=== PATIENT | male | born 1950 | race Caucasian/White ===

== ENCOUNTER 2020-01-08 06:06 | Inpatient (IN) ==
--- NOTE | 2019-12-13 07:33 | PAT Medication Instructions ---
Medication Instructions Date of Service December 13, 2019 Home Medications acetaminophen [Acetaminophen Extra Strength] 1,000 mg PO Q8H PRN atorvastatin 80 mg PO HS clopidogrel [Plavix] 75 mg PO QAM folic acid 1 mg PO TID hydrocodone-acetaminophen 1 - 2 tab PO QID PRN insulin glargine [Lantus Solostar U-100 Insulin] 60 unit SUBCUT HS insulin glargine [Lantus Solostar U-100 Insulin] 60 unit SUBCUT QAM insulin lispro [Humalog KwikPen Insulin] 15 - 20 unit SUBCUT WM lisinopril-hydrochlorothiazide 1 tab PO QAM methotrexate sodium 2.5 mg PO UD metoprolol succinate 25 mg PO QPM naproxen sodium [Aleve] 220 mg PO BID PRN pantoprazole 40 mg PO HS ropinirole 1 mg PO HS saw palmetto 500 mg PO DAILY ASK your surgeon for instructions naproxen sodium [Aleve] 220 mg PO BID PRN ASK your prescriber and surgeon clopidogrel [Plavix] 75 mg PO QAM methotrexate sodium 2.5 mg PO UD STOP taking 2 weeks before surgery (or as soon as possible if surgery is within 2 weeks) saw palmetto 500 mg PO DAILY STOP taking 24 hours before surgery ropinirole 1 mg PO HS DO NOT take the morning of surgery folic acid 1 mg PO TID insulin lispro [Humalog KwikPen Insulin] 15 - 20 unit SUBCUT WM lisinopril-hydrochlorothiazide 1 tab PO QAM Take morning of surgery With a small sip of water, OTHERWISE NOTHING TO EAT OR DRINK AFTER MIDNIGHT: acetaminophen [Acetaminophen Extra Strength] 1,000 mg PO Q8H PRN (okay to take up to 4 hours prior to surgery if needed) hydrocodone-acetaminophen 1 - 2 tab PO QID PRN (okay to take up to 4 hours prior to surgery if needed) Take evening before surgery acetaminophen [Acetaminophen Extra Strength] 1,000 mg PO Q8H PRN (if needed) atorvastatin 80 mg PO HS folic acid 1 mg PO TID hydrocodone-acetaminophen 1 - 2 tab PO QID PRN (if needed) insulin glargine [Lantus Solostar U-100 Insulin] 60 unit SUBCUT HS insulin lispro [Humalog KwikPen Insulin] 15 - 20 unit SUBCUT WM metoprolol succinate 25 mg PO QPM pantoprazole 40 mg PO HS Insulin Dependent Diabetic Patients * Test your blood sugar the morning of surgery * If Blood Sugar is GREATER THAN 150, take HALF of your regular dose of: insulin glargine [Lantus Solostar U-100 Insulin] take 30 units * If Blood Sugar is LESS THAN 150, DO NOT TAKE ANY: insulin glargine [Lantus Solostar U-100 Insulin] Other Notes If you have any questions please call us at [phone] or [phone] or [phone] or [phone]
--- NOTE | 2019-12-27 09:01 | PAT Medication Instructions ---
Medication Instructions Date of Service December 27, 2019 Home Medications acetaminophen [Acetaminophen Extra Strength] 1,000 mg PO Q8H PRN atorvastatin 80 mg PO HS clopidogrel [Plavix] 75 mg PO QAM folic acid 1 mg PO TID hydrocodone-acetaminophen 1 - 2 tab PO QID PRN insulin glargine [Lantus Solostar U-100 Insulin] 60 unit SUBCUT HS insulin glargine [Lantus Solostar U-100 Insulin] 60 unit SUBCUT QAM insulin lispro [Humalog KwikPen Insulin] 15 - 20 unit SUBCUT WM lisinopril-hydrochlorothiazide 1 tab PO QAM methotrexate sodium 2.5 mg PO UD metoprolol succinate 25 mg PO QPM naproxen sodium [Aleve] 220 mg PO BID PRN pantoprazole 40 mg PO HS ropinirole 1 mg PO HS saw palmetto 500 mg PO DAILY ASK your surgeon for instructions naproxen sodium [Aleve] 220 mg PO BID PRN ASK your prescriber and surgeon methotrexate sodium 2.5 mg PO UD clopidogrel [Plavix] 75 mg PO QAM STOP taking 2 weeks before surgery saw palmetto 500 mg PO DAILY STOP taking 24 hours before surgery ropinirole 1 mg PO HS DO NOT take the morning of surgery lisinopril-hydrochlorothiazide 1 tab PO QAM insulin lispro [Humalog KwikPen Insulin] 15 - 20 unit SUBCUT WM folic acid 1 mg PO TID Take morning of surgery With a small sip of water, OTHERWISE NOTHING TO EAT OR DRINK AFTER MIDNIGHT: hydrocodone-acetaminophen 1 - 2 tab PO QID PRN (okay to take up to 4 hours prior to surgery if needed) acetaminophen [Acetaminophen Extra Strength] 1,000 mg PO Q8H PRN (okay to take up to 4 hours prior to surgery if needed) Take evening before surgery pantoprazole 40 mg PO HS metoprolol succinate 25 mg PO QPM insulin glargine [Lantus Solostar U-100 Insulin] 60 unit SUBCUT HS insulin lispro [Humalog KwikPen Insulin] 15 - 20 unit SUBCUT WM hydrocodone-acetaminophen 1 - 2 tab PO QID PRN (if needed) folic acid 1 mg PO TID acetaminophen [Acetaminophen Extra Strength] 1,000 mg PO Q8H PRN (if needed) atorvastatin 80 mg PO HS Insulin Dependent Diabetic Patients * Test your blood sugar the morning of surgery * If Blood Sugar is GREATER THAN 150, take HALF of your regular dose of: insulin glargine [Lantus Solostar U-100 Insulin] (30 units) * If Blood Sugar is LESS THAN 150, DO NOT TAKE ANY: insulin glargine [Lantus Solostar U-100 Insulin] Other Notes If you have any questions please call us at [phone] or [phone] or [phone] or [phone]
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
--- NOTE | 2019-12-27 10:19 | XRay Report ---
XR chest Pre-admission PA/Lat HISTORY: Preop. COMPARISON: None. FINDINGS: Poststernotomy changes. The lungs are clear. The heart is mildly enlarged. No pleural effus ions. No pneumothorax. IMPRESSION: Mild cardiomegaly. No acute process. ACT 112: Negative or not required by law. Electronically signed by: Nader Perez M.D. 12/27/2019 10:18 AM
--- NOTE | 2019-12-27 10:28 | XRay Report ---
CERVICAL SPINE 3 VIEWS HISTORY: preop- RA (lateral view w flex, ext, neutral pos) COMPARISON: None. FINDINGS: The cervical spine is visualized from C1 through C7. There is no fracture. No subluxation. Mild disc space narrowing at this C4-C5 and C5-C6. Moderate disc space narrowing at C6-7. Prevertebr al soft tissues and the atlantodens interval are intact. Alignment remains intact throughout flexion and extension. IMPRESSION: No fracture or subluxation within the cervical spine. Alignment is intact throughout flexion and exte nsion. ACT 112: Negative or not required by law. Electronically signed by: Nader Perez M.D. 12/27/2019 10:27 AM
[2019-12-27 10:55] LABS: Basophils # (auto) 0.03 K/uL (0-0.2); Basophils % (auto) 0.4 %; Eosinophils # (auto) 0.14 K/uL (0-0.5); Eosinophils % (auto) 1.9 %; Hematocrit (blood only) 44.3 % (42-52); Hemoglobin 15.3 g/dL (14.0-18.0); Immature Granulocytes # (auto) 0.02 K/uL (0.00-0.02); Immature Granulocytes % (auto) 0.3 %; Lymphocytes # (auto) 2.21 K/uL (1.2-3.4); Lymphocytes % (auto) 30.4 %; Mean Corpuscular Hemoglobin 33.9 pg (25-34); Mean Corpuscular Hgb Conc 34.5 g/dL (32-36); Mean Corpuscular Volume 98.2 fL (80-100); Mean Platelet Volume 11.4 fL (7.4-10.4); Monocytes # (auto) 0.53 K/uL (0.11-0.59); Monocytes % (auto) 7.3 %; Neutrophils # (auto) 4.34 K/uL (1.4-6.5); Neutrophils % (auto) 59.7 %; Platelet Count 218 K/uL (130-400); RDW Coefficient of Variation 13.2 % (11.5-14.5); RDW Standard Deviation 47.1 fL (36.4-46.3); Red Blood Count 4.51 M/uL (4.7-6.1); White Blood Count 7.27 K/uL (4.8-10.8)
[2019-12-27 11:01] LABS: BUN Creatinine Ratio 26.5 (10-20); Creatinine Clr Calc Pharmacy 90.9 ml/min; Est GFR (African American) 106.6
[2019-12-27 11:03] LABS: Estimated Average Glucose 154 mg/dl
[2019-12-27 11:07] LABS: INR 1.1 (0.9-1.1); Partial Thromboplastin Time 28.4 Seconds (21.0-31.0); Prothrombin Time 11.1 Seconds (9.0-12.0)
[2019-12-27 11:10] LABS: Appearance Urine Clear (Clear); Bacteria Urine Automated Negative (Negative); Bilirubin Urine Negative (Negative); Blood Urine Negative (Negative); Cast Urine Automated 0 /lpf (0-5); Color Urine Yellow; Epithelial Cell Urine Auto 0-5 /lpf (0-5); Glucose Urine UA Trace (Negative); Ketones Urine Negative (Negative); Leukocyte Esterase Urine Negative (Negative); Nitrite Urine Negative (Negative); Protein Urine 1+ (Negative); RBC Urine Automated 0-4 /hpf (0-4); Specific Gravity Urine 1.023 (1.000-1.030); Urobilinogen Urine Negative (Negative); WBC Urine Automated 0 /hpf (0-5)
--- NOTE | 2019-12-27 17:35 | Electrocardiogram Report ---
Test Reason : Blood Pressure : / mmHG Vent. Rate : 077 BPM Atrial Rate : 077 BPM P-R Int : 158 ms QRS Dur : 124 ms QT Int : 420 ms P-R-T Axes : 077 255 077 degrees QTc Int : 475 ms Normal sinus rhythm Right bundle branch block Abnormal ECG No previous ECGs available Confirmed by Anatoly Solis ([id number]) on 12/27/2019 5:35:16 PM Referred By: Tito Vu Confirmed By:Anatoly Solis
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
[~2020-01-08 06:06] MED LIST: ACETAMINOPHEN 500 MG TAB PO SCH; CEFAZOLIN 2000MG 2,000 MG/15 ML SYR IV SCH; CeleBREX 200 MG CAP PO SCH; GABAPENTIN 300 MG CAP PO SCH; LR 15ML/HR IV SCH; SODIUM CHLORIDE 0.9% 250 ML IV PRN
[2020-01-08] MEDS ORDERED: fentaNYL citrate 100 MCG/2 ML VIAL ONE ×3 (06:43→11:19)
[2020-01-08] MEDS ORDERED: LIDOCAINE HCL 2% 2 ML VIAL/AMP(20MG/ML) INFIL ONE (06:43)
[2020-01-08] MEDS ORDERED: DEXAMETHASONE SOD INJ 4 MG/ML VIAL ONE (06:43)
[2020-01-08] MEDS ORDERED: ROCURONIUM BROMIDE 10 MG/ML 5 ML VIAL ONE (06:43)
[2020-01-08] MEDS ORDERED: MIDAZOLAM HCL 1 MG/ML 2ML VIAL ONE (06:43)
[2020-01-08] MEDS ORDERED: PROPOFOL IV EMULSION 10 MG/ML 20 ML VIAL IV ONE (06:43)
[2020-01-08] MEDS ORDERED: ONDANSETRON INJ 2 MG/ML 2 ML VIAL ONE (06:43)
[2020-01-08] MEDS ORDERED: BACITRACIN INJ 50,000 UNIT VIAL ONE (07:01)
[2020-01-08] MEDS ORDERED: BUPIVACAINE/EPINEPHRINE 0.5% MPF 1:200,000 10 ML VIAL ONE ×2 (07:02)
[2020-01-08] MEDS ORDERED: ATROPINE SULFATE 0.1 MG/ML 10ML SYR IV PRN (07:14)
[2020-01-08] MEDS ORDERED: HYDROmorphone INJ 1 MG/ML SYRINGE IV PRN (07:14)
[2020-01-08] MEDS ORDERED: fentaNYL citrate 100 MCG/2 ML VIAL IV PRN (07:14)
[2020-01-08] MEDS ORDERED: ePHEDrine sulfate 50 MG/ML AMP IV PRN (07:14)
[2020-01-08] MEDS ORDERED: ONDANSETRON INJ 2 MG/ML 2 ML VIAL IV PRN ×2 (07:14→11:52)
--- NOTE | 2020-01-08 07:32 | History & Physical Bridge Note ---
Date of Service January 08, 2020 History & Physical Bridge Note I have examined the patient, reviewed the History & Physical and in the interval since the performance of the History & Physical I have noted the following changes of clinical significance: no changes noted
[2020-01-08] MEDS ORDERED: NEOSTIGMINE METHYLSULFATE 5 MG/5 ML SYR ONE (10:11)
[2020-01-08] MEDS ORDERED: GLYCOPYRROLATE 0.2 MG/ML VIAL ONE (10:11)
[2020-01-08] MEDS ORDERED: FLOSEAL HEMOSTATIC MATRIX 10ML TOP ONE ×3 (10:14→10:15)
--- NOTE | 2020-01-08 10:18 | Operative Report ---
Post Operative Report Pre & Post Diagnosis Operation Date: 01/08/20 07:45 Pre-Op Diagnosis: Lumbar spinal stenosis with neurogenic claudication Post-Op Diagnosis: Same I identified the patient and participated in the time-out.: Yes Procedure Operation Date: 01/08/20 07:45 Actual Procedures #1 lumbar decompression with bilateral medial facetectomies and foraminotomies L2-3, L3-4 and L4-5. #2 posterior spinal fusion L3-4 and L4-5 per #3 placement posterior instrumentation L3-4 and L4-5. #4 placement of locally harvested morselized autograft in the posterior lateral gutters. #5 placement infuse collagen sponge, master graft in the posterior lateral gutters. Surgeon Tito Vu, DO Petrophysical Engineer Rosaura Michael Estimated Blood Loss 250 Findings See Below Patient is 5 foot 5 inches tall weighing over 89 kg with a BMI in excess of 32. The patient's body habitus did add significant technical difficulty requiring our deepest retractors and longus instruments in order to perform his procedure. This added at least 40% increase to the operative time. Specimens None Indications This is a 69-year-old male with advancing severe spinal stenosis with spondylolisthesis and noting progressive pain and strength deficits subsequently is undergoing urgent decompression fusion. Description of Procedure Patient was met with identified informed consent obtained. Patient was then taken to the operative suite underwent an patient placed in a prone position the Austen table on top of the Ian frame. All bony prominences well-padded eyes inspected to ensure no external pressure placed upon the. This point the lumbar spine was prepped and draped in a normal sterile fashion. Sharp dissection with the assistance of Bovie cautery was performed down to and exposing the lamina and transverse processes of L3-L4 and L5. From caudal cephalad fashion complete laminectomy of L4 L3 and partial laminectomy of L2 was performed including bilateral medial facetectomies and foraminotomies addressing severe spinal stenosis. Pedicle screws were then placed in L3-L4 and L5 bilaterally with assistance of fluoroscopy the process ashlee locked in position. The transverse processes of L3 and L4 and L5 were then burred to subcortical bleeding bone. Infuse collagen sponge master graft local autograft was then placed in the posterior lateral gutters. 15 round GABINO drain inserted. The incision was then closed with 1 Vicryl the fascia 2-0 Vicryl subcutaneously and 4 Monocryl for final skin closure. Steri-Strip sterile dressings placed. Patient will continue PACU stable addition. Please note Rosaura Michael present at the entire procedure involved the patient positioning complex portions of the surgery and final skin closure. Lastly spinal cord monitoring was utilized that the procedure no changes noted. I attest to the content of the Intraoperative Record and any orders documented therein. Any exceptions are noted below.
[2020-01-08] MEDS ORDERED: PHENYLEPHRINE HCL 10 MG/ML VIAL ONE (10:23)
[2020-01-08] MEDS ORDERED: ePHEDrine sulfate 50 MG/ML SYR ONE (10:23)
--- NOTE | 2020-01-08 10:35 | Fluoroscopy Report ---
LUMBAR SPINE, INTRAOPERATIVE FLUOROSCOPY HISTORY: L3-L5 decompression and fusion. FLUOROSCOPY TIME: 19 seconds. FINDINGS: Intraoperative fluoroscopy was provided for the lumbar spine. 2 fluoroscopic spot images we re obtained. Posterior decompression fusion from L3 through L5 with pedicle screws and rods. The hard kaye appears intact. IMPRESSION: Fluoroscopy provided for a L3-L5 posterior decompression and fusion. ACT 112: Negative or not required by law. Electronically signed by: Nader Perez M.D. 01/08/2020 10:33 AM
[2020-01-08] MEDS ORDERED: ALBUT/IPRATROP 3MG/0.5MG NEB 3 ML VIAL INH PRN (10:52)
[2020-01-08] MEDS ORDERED: LABETALOL HCL IV 5 MG/ML 20ML IV PRN (10:52)
[2020-01-08] MEDS ORDERED: DO NOT ADMINISTER PNEUMOCOCCAL VACCINE PRN (11:52)
[2020-01-08] MEDS ORDERED: LORazepam 0.5 MG TAB PO PRN (11:52)
[2020-01-08] MEDS ORDERED: FAMOTIDINE 20 MG TAB PO PRN (11:52)
[2020-01-08] MEDS ORDERED: METOCLOPRAMIDE HCL INJ 5 MG/ML 2 ML VIAL IV PRN (11:52)
[2020-01-08] MEDS ORDERED: ONDANSETRON 4 MG OD TAB PO PRN (11:52)
[2020-01-08] MEDS ORDERED: MAGNESIUM HYDROXIDE SUSP 30 ML UDC PO PRN (11:52)
[2020-01-08] MEDS ORDERED: SOD PHOSPHATE/SOD BIPHOSPHATE ENEMA 132 ML BTL PR PRN (11:52)
[2020-01-08] MEDS ORDERED: TRAMADOL HCL 50 MG TABLET PO PRN (11:52)
[2020-01-08] MEDS ORDERED: NALOXONE HCL 0.4 MG/1 ML VIAL/CARP IV PRN (11:52)
[2020-01-08] MEDS ORDERED: ACETAMINOPHEN 500 MG TAB PO PRN (11:52)
[2020-01-08] MEDS ORDERED: bisacodyL 10 MG SUPP PR PRN (11:52)
[2020-01-08] MEDS ORDERED: ACETAMINOPHEN 1,000 MG/100 ML VIAL IV PRN (11:52)
[2020-01-08] MEDS ORDERED: LORazepam 0.5 MG/1 ML VIAL IV PRN (11:52)
[2020-01-08] MEDS ORDERED: DO NOT ADMINISTER FLU VACCINE PRN (11:52)
[2020-01-08] MEDS ORDERED: PROMETHAZINE HCL 12.5 MG in SODIUM CHLORIDE 0.9% 50 ML IV PRN (11:52)
[2020-01-08] MEDS ORDERED: PHARMACY GLYCEMIC MGMT CONSULT PRN (12:20)
[2020-01-08] MEDS ORDERED: INSULIN ASPART 100 UNITS/ML 3 ML PEN SC SCH (12:30)
[2020-01-08] MEDS: SODIUM CHLORIDE 0.9% 1000ML 1,000 ML IV SCH ×2 (12:30→21:21)
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
[2020-01-08] MEDS ORDERED: GLUCOSE 10 TABS/TUBE PO PRN (13:16)
[2020-01-08] MEDS ORDERED: GLUCAGON FOR INJ 1 MG VIAL SQ PRN (13:16)
[2020-01-08] MEDS ORDERED: CARBOHYDRATES FOR HYPOGLYCEMIA PO PRN (13:16)
[2020-01-08] MEDS ORDERED: DEXTROSE 50% 50 ML SYRINGE IV PRN (13:16)
[2020-01-08] MEDS ORDERED: GLUCOSE 40% GEL 15 GM TUBE PO PRN (13:16)
[2020-01-08] MEDS: FOLIC ACID 1 MG TAB PO SCH ×2 (13:49→21:19)
[2020-01-08] MEDS: OXYCODONE HCL IR 5 MG TAB (IMMEDIATE RELEASE) PO PRN ×2 (13:49→18:53)
--- NOTE | 2020-01-08 14:05 | Anesthesiology Progress Note ---
Date of Service January 08, 2020 Anesthesia Post Procedure Vital Signs Vital Signs: Temp Pulse Pulse Resp BP Pulse Ox 01/08/20 13:56 87 18 115/66 95 01/08/20 13:11 80 18 111/64 93 01/08/20 12:30 36.4 C L 80 18 117/71 93 01/08/20 12:05 36.9 C 82 17 134/70 96 01/08/20 11:50 37.1 C 86 18 127/70 95 01/08/20 11:40 37.1 C 88 16 129/72 97 01/08/20 11:30 37.1 C 81 22 116/66 97 01/08/20 11:20 79 19 112/71 99 01/08/20 11:10 81 17 121/65 99 01/08/20 11:00 87 17 113/60 99 01/08/20 10:54 36.8 C 84 16 131/78 99 01/08/20 06:52 37 C 103 H 20 175/90 H 97 Pain Intensity Lower Back: Pain Intensity: 4 Transfer of Care Handoff Completed per policy Notes Mental Status: alert / awake / arousable and participated in evaluation Patient Amnestic to Procedure: Yes Nausea / Vomiting: adequately controlled Pain: adequately controlled Airway Patency, RR, SpO2: stable & adequate BP & HR: stable & adequate Hydration State: stable & adequate Anesthetic Complications: no major complications apparent and Pt Satisfied with anesthetic care
[2020-01-08] MEDS ORDERED: COUGH DROP (SUGAR FREE) LOZ 24 LOZ/1 BOX BUCCAL ONE (15:35)
[2020-01-08] MEDS: CEFAZOLIN 2000MG 2,000 MG/15 ML SYR IV SCH ×2 (17:11→23:36)
[2020-01-08] MEDS: INSULIN ASPART 100 UNITS/ML 3 ML PEN SC SCH ×2 (19:15→21:24)
[2020-01-08] MEDS: PANTOprazole 40 MG TAB PO SCH (21:20)
[2020-01-08] MEDS: ATORVASTATIN 40 MG TAB PO SCH (21:20)
[2020-01-08] MEDS: DOCUSATE SODIUM/SENNA 50/8.6MG TAB PO SCH (21:20)
[2020-01-08] MEDS: ROPINIROLE HCL 1 MG TABLET PO SCH (21:20)
[2020-01-08] MEDS: METOPROLOL SUCC 25MG EXT REL TAB PO SCH (21:21)
[2020-01-08] MEDS: INSULIN GLARGINE SOLOSTAR 100 UNITS/ML 3 ML PEN SC SCH (21:22)
[2020-01-09] MEDS: INSULIN ASPART 100 UNITS/ML 3 ML PEN SC SCH ×6 (00:11→20:56)
[2020-01-09 05:47] LABS: Basophils # (auto) 0.01 K/uL (0-0.2); Basophils % (auto) 0.1 %; Hemoglobin 10.7 g/dL (14.0-18.0); Immature Granulocytes # (auto) 0.05 K/uL (0.00-0.02); Immature Granulocytes % (auto) 0.3 %; Lymphocytes # (auto) 1.61 K/uL (1.2-3.4); Lymphocytes % (auto) 10.2 %; Mean Corpuscular Hemoglobin 32.8 pg (25-34); Mean Corpuscular Hgb Conc 33.4 g/dL (32-36); Mean Corpuscular Volume 98.2 fL (80-100); Monocytes # (auto) 1.34 K/uL (0.11-0.59); Monocytes % (auto) 8.5 %; Neutrophils # (auto) 12.82 K/uL (1.4-6.5); Neutrophils % (auto) 80.9 %; Platelet Count 194 K/uL (130-400); RDW Coefficient of Variation 12.8 % (11.5-14.5); Red Blood Count 3.26 M/uL (4.7-6.1); White Blood Count 15.83 K/uL (4.8-10.8)
[2020-01-09] MEDS: POLYETHYLENE (MIRALAX) 17 GM PACK PO SCH ×4 (05:53→23:34)
[2020-01-09] MEDS: OXYCODONE HCL IR 5 MG TAB (IMMEDIATE RELEASE) PO PRN ×4 (05:58→21:15)
[2020-01-09 06:11] LABS: BUN Creatinine Ratio 22.2 (10-20); Calcium 8.2 mg/dl (8.5-10.1); Creatinine Clr Calc Pharmacy 75.9 ml/min; Est GFR (African American) 93.2; Est GFR (Non-African American) 80.5; Potassium 4.2 mmol/L (3.5-5.1)
[2020-01-09] MEDS: FOLIC ACID 1 MG TAB PO SCH ×3 (08:55→20:47)
[2020-01-09] MEDS: INSULIN GLARGINE SOLOSTAR 100 UNITS/ML 3 ML PEN SC SCH ×2 (08:56→20:56)
[2020-01-09] MEDS ORDERED: NON-FORMULARY MEDICATION (Saw Palmetto 500 MG) PO SCH (09:00)
[2020-01-09] MEDS ORDERED: LISINOPRIL/HCTZ 10/12.5MG TAB PO SCH (09:00)
--- NOTE | 2020-01-09 10:08 | Hospitalist Progress Note ---
Date of Service January 09, 2020 Assessment & Plan (1) Status post lumbar surgery: Post op day# 1 S/P L3-L5 decompression and fusion by Dr Mirella CRUZ#250ml Post Op Acute Blood Loss Anemia-Hb 15--->10 Resume Post Op Care per Surgery Protocol Incentive Spirometry 10x per Hour Resume Relative Home Meds Where Appropriate PT/OT with appropriate fall precautions Transition from IV to PO Pain control DVT Prophylaxis Per Surgery Protocol Monitor Daily Labs -monitor H&H for acute blood loss anemia; pre-op Hgb: 15 (2) CAD (coronary artery disease): S/P CABG. Follows with cardiology in [place] Denies CP, SOB -Continue metoprolol, statin -Aspirin, Plavix on hold. Recommend resuming when ok per ortho spine (3) Diabetes mellitus, type 2: A1c: 7.0 on 12/27/2019 -Pt received dexamethasone -Hold home insulin -Lantus, Novolog sliding scale per protocol (4) Hypertension: Stable, SBP's 111 -Hold lisinopril and HCTZ and monitor BP -Continue metoprolol (5) Hyperlipidemia: -Continue statin (6) Rheumatoid arthritis: -Methotrexate on hold DVT Prophylaxis -SCDs per ortho Disposition per primary service Follows with Dr Ku in [place] for routine care Labs checked ROS-No Headache, No Visual Changes, No Nausea, No Vomiting, No Fever, No Chills, No Neck Pain or Stiffness, No Chest Pain, No Palpitations, No SOB, No MAGANA, No Cough, No Sputum, No Wheezing, No Abdominal Pain, No Diarrhea, No Hematemesis, No Hemoptysis, No Unexpected Weight Loss, No Flank pain, No Melena, No Hematochezia, No Frequency, No Urgency, No Burning, No Hematuria, No Rashes, No Diaphoresis. Appetite is Normal, Sore Back Physical Exam Gen-AAO x 3, NAD, Afebrile Head-NCAT, EOMI, PERRLA, Anicteric Sclera, No Posterior Pharyngeal Erythema Neck-Supple, No JVD, No Thyromegaly, No Masses, No LAD, No Bruits Lungs-Clear to Auscultation Bilaterally, No Rales, No Rhonchi, No Wheezing, No Crepitus Chest-No S4, +S1, +S2, No S3, No Murmurs, No Rubs, No Gallops, No Ectopy Abdomen-Soft, Bowel Sounds Present, Non Tender, Non Distended, No Hepatomegaly, No Splenomegaly, No Palpable Masses, No Rebound, No Rigidity, No Guarding Musculoskeletal-No CVAT, Drain c Blood Extremities-No Cyanosis, No Clubbing, No Edema Nuero-Cranial Nerves II-XII grossly intact, Motor WNL, DTRs WNL, Strength WNL, Non Focal Psych-Normal Mood Admission and Anticipated Discharge Date Admission Date: January 08, 2020 Results & Data Results & Data ([facility]) Vital Signs (Past 12 Hours) Vital Signs Temp Pulse Pulse Resp BP Pulse Ox 01/09/20 07:37 37.0 C 84 18 135/72 95 01/09/20 03:50 36.9 C 86 16 134/65 94 01/08/20 22:56 36.7 C 91 H 16 122/71 92
[2020-01-09] MEDS ORDERED: CALCIUM CARBONATE 500 MG CHEWABLE TAB PO PRN (10:33)
--- NOTE | 2020-01-09 10:36 | Orthopedic Progress Note ---
Date of Service January 09, 2020 Assessment & Plan (1) Neurogenic claudication due to lumbar spinal stenosis: At this time we will continue physical therapy monitor his GABINO output hopefully discharge home in the next few days. Present on Admission?: Yes Admission and Anticipated Discharge Date Admission Date: January 08, 2020 Subjective Back pain controlled leg symptoms markedly improved. Physical Exam Physical Exam: On exam patient is in a chair at the bedside. He has improved strength testing. Appears comfortable. Results & Data ([facility]) Vital Signs (Past 12 Hours) Vital Signs Temp Pulse Pulse Resp BP Pulse Ox 01/09/20 07:37 37.0 C 84 18 135/72 95 01/09/20 03:50 36.9 C 86 16 134/65 94 01/08/20 22:56 36.7 C 91 H 16 122/71 92
[2020-01-09] MEDS: ALUMINUM/MAGNESIUM SUSP 30 ML UDC PO PRN ×2 (10:43→20:47)
[2020-01-09] MEDS: DOCUSATE SODIUM/SENNA 50/8.6MG TAB PO SCH (17:05)
[2020-01-09] MEDS: PANTOprazole 40 MG TAB PO SCH (20:48)
[2020-01-09] MEDS: ATORVASTATIN 40 MG TAB PO SCH (20:48)
[2020-01-09] MEDS: ROPINIROLE HCL 1 MG TABLET PO SCH (20:49)
[2020-01-09] MEDS: METOPROLOL SUCC 25MG EXT REL TAB PO SCH (20:49)
[2020-01-10] MEDS: OXYCODONE HCL IR 5 MG TAB (IMMEDIATE RELEASE) PO PRN ×2 (05:06→09:14)
[2020-01-10] MEDS: POLYETHYLENE (MIRALAX) 17 GM PACK PO SCH (05:07)
[2020-01-10 06:45] LABS: Hematocrit (blood only) 28.9 % (42-52); Hemoglobin 9.8 g/dL (14.0-18.0); Mean Corpuscular Hemoglobin 33.2 pg (25-34); Mean Corpuscular Hgb Conc 33.9 g/dL (32-36); Mean Platelet Volume 10.6 fL (7.4-10.4); Platelet Count 172 K/uL (130-400); RDW Standard Deviation 46.5 fL (36.4-46.3); Red Blood Count 2.95 M/uL (4.7-6.1); White Blood Count 13.73 K/uL (4.8-10.8)
[2020-01-10 07:14] LABS: BUN Creatinine Ratio 27.2 (10-20); Creatinine Clr Calc Pharmacy 86.6 ml/min; Est GFR (African American) 104.5; Est GFR (Non-African American) 90.2; Potassium 4.6 mmol/L (3.5-5.1)
[2020-01-10] MEDS: FOLIC ACID 1 MG TAB PO SCH (07:48)
--- NOTE | 2020-01-10 08:24 | Hospitalist Progress Note ---
Date of Service January 10, 2020 Assessment & Plan (1) Status post lumbar surgery: Post op day#2 S/P L3-L5 decompression and fusion by Dr Mirella CRUZ#250ml Post Op Acute Blood Loss Anemia-Hb 15--->10--->9.8 Resume Post Op Care per Surgery Protocol Incentive Spirometry 10x per Hour Resume Relative Home Meds Where Appropriate PT/OT with appropriate fall precautions Transition to PO Pain control DVT Prophylaxis Per Surgery Protocol Monitor Daily Labs DC home today if ok c ortho spine pre-op Hgb: 15 (2) CAD (coronary artery disease): S/P CABG. Follows with cardiology in [place] Denies CP, SOB -Continue metoprolol, statin -Aspirin, Plavix on hold. Recommend resuming when ok per ortho spine (3) Diabetes mellitus, type 2: A1c: 7.0 on 12/27/2019 -Pt received dexamethasone -Hold home insulin -Lantus, Novolog sliding scale per protocol (4) Hypertension: Stable, SBP's 111 -Hold lisinopril and HCTZ and monitor BP -Continue metoprolol (5) Hyperlipidemia: -Continue statin (6) Rheumatoid arthritis: -Methotrexate on hold DVT Prophylaxis -SCDs per ortho Disposition per primary service Follows with Dr Ku in [place] for routine care Labs checked ROS-No Headache, No Visual Changes, No Nausea, No Vomiting, No Fever, No Chills, No Neck Pain or Stiffness, No Chest Pain, No Palpitations, No SOB, No MAGANA, No Cough, No Sputum, No Wheezing, No Abdominal Pain, No Diarrhea, No Hematemesis, No Hemoptysis, No Unexpected Weight Loss, No Flank pain, No Melena, No Hematochezia, No Frequency, No Urgency, No Burning, No Hematuria, No Rashes, No Diaphoresis. Appetite is Normal, Sore Back Physical Exam Gen-AAO x 3, NAD, Afebrile Head-NCAT, EOMI, PERRLA, Anicteric Sclera, No Posterior Pharyngeal Erythema Neck-Supple, No JVD, No Thyromegaly, No Masses, No LAD, No Bruits Lungs-Clear to Auscultation Bilaterally, No Rales, No Rhonchi, No Wheezing, No Crepitus Chest-No S4, +S1, +S2, No S3, No Murmurs, No Rubs, No Gallops, No Ectopy Abdomen-Soft, Bowel Sounds Present, Non Tender, Non Distended, No Hepatomegaly, No Splenomegaly, No Palpable Masses, No Rebound, No Rigidity, No Guarding Musculoskeletal-No CVAT, Drain flat today Extremities-No Cyanosis, No Clubbing, No Edema Nuero-Cranial Nerves II-XII grossly intact, Motor WNL, DTRs WNL, Strength WNL, Non Focal Psych-Normal Mood Admission and Anticipated Discharge Date Admission Date: January 08, 2020 Anticipated date of discharge: 01/10/20 Results & Data Results & Data ([facility]) Vital Signs (Past 12 Hours) Vital Signs Temp Pulse Pulse Resp BP Pulse Ox 01/10/20 08:16 37.2 C 01/10/20 07:44 37.3 C 84 16 136/75 95 01/09/20 22:50 37.7 C H 107 H 18 142/77 H 92
[2020-01-10] MEDS: INSULIN GLARGINE SOLOSTAR 100 UNITS/ML 3 ML PEN SC SCH (08:35)
[2020-01-10] MEDS: INSULIN ASPART 100 UNITS/ML 3 ML PEN SC SCH (08:36)
--- NOTE | 2020-01-10 10:21 | Discharge Summary ---
Date of Service January 10, 2020 Admission HPI Per Admitting Provider This is a 69-year-old male who presents with worsening back and bilateral leg symptoms over the past year. He denies any specific trauma fall or event. He describes pain with standing and ambulation rating into the bilateral buttocks posterior lateral thigh extending to the feet. He can only stand for a few seconds before he must sit secondary to the marked increase in pain and progressive weakness in his legs. He is undergone extensive course of nonoperative care without improvement in his status. Principal Diagnosis Lumbar spinal stenosis with neurogenic claudication Discharge Data Allergies Allergy/AdvReac Type Severity Reaction Status Date / Time niacin Allergy Intermediate HIVES AND Verified 01/08/20 06:38 ITCHING morphine AdvReac Mild VOMITING/NA Verified 01/08/20 06:38 USEA Consultations 01/08/20 11:52 Consult Case Management - Discharge Planning Routine Consult Hospitalist Routine Procedures Performed Operation Date: 01/08/20 07:45 Actual Procedures p L3-L5 Decompression and Fusion with Spinal Cord Monitoring(Not Applicable) - Tito Vu DO Ordered Studies 01/08/20 07:45 FL fluoroscopy <1hr Routine FL lumbar spine 2-3V Routine Hospital Course (1) Neurogenic claudication due to lumbar spinal stenosis: Patient went multilevel lumbar decompression fusion tolerated this well was taken to orthopedic for postoperative. Postop day 1 he was up and ambulating leg pain and strength improving. He progressed to postop day #2. GABINO drain decreasing appropriately. Strength improved. Subsequent discharge home. Discharge orders and instructions from the chart for further view. Total Time Total Time Spent Total Time Spent (In Minutes): 20 minutes Discharge Plan Discharge Items Patient Disposition: Home - Self-Care Reason For Visit: Low Back Pain Discharge Diagnosis: Lumbar spinal stenosis with neurogenic claudication Activity: As commented below Non-emergency contact: Primary Care Provider Call non-emergency contact if: you have any medication questions Follow-up/Referrals: Bere Rojas D.O. [Primary Care Provider] - Diet: Regular Addtl Attending Provider Instructions: ACTIVITY RECOMMENDATIONS: SELF CARE INSTRUCTIONS AFTER THORACIC/LUMBAR FUSIONS 1. You may walk to your tolerance. It is good exercise for your legs and back. Expect some back and intermittent leg aches and pains. 2. You may perform "counter-top" level activities (make a sandwich, antoinette with a project, etc.). 3. No bending or lifting of more than 10 pounds or back twisting of any nature (roll like a log when turning in bed). 4. You may ride in a car for 20-30 minutes at a time. No driving until after y our first visit with your doctor. 5. Frequent changes of position and restricting sitting to 30 minutes at a time will help limit the amount of back spasms and stiffness you may experience. 6. You may discontinue the use of ambulatory aids (cane, crutches, etc.) once your strength and confidence allow. 7. You may manufacturing accountant the shower and let water strike your incision when you arrive home at least once daily. Do not take a tub bath, sit in a hot tub or go into a swimming pool until after your first recheck in the office. SPECIAL CARE INSTRUCTIONS: VERY IMPORTANT TO READ AND REVIEW A. Your surgical incision has been closed with a cosmetic suture under the skin that will dissolve in about 6 weeks. In 14 days, you can use a pair of clean scissors and cut the suture that is left outside of the skin at the ends of your incision. 1. The small skin tapes can be removed 7 days after surgery if they have not fallen off by that point. 2. You may keep the wound open to air as much as possible to promote healing after post-op day number 5 unless told otherwise by your doctor. 3. If you think the wound looks like it is becoming infected (redness or worsening drainage) and/or you are experiencing fever, chill or worsening back pain and muscle spasms, contact the office so that we may evaluate you as soon as possible. B. Complications are uncommon, but please contact us if you have any signs or symptoms of: 1. wound infection (fever higher than 102.5 degrees F, redness, separation of wound, drainage, or increasing pain from the incision) 2. blood clots in legs (pain, swelling, redness and warmth in legs) 3. urinary tract infection (fever higher than 102.5 degrees F, burning upon urination or increased frequency of urination) 4. nerve problems (inability to walk on your toes or heels, numbness, loss of bowel or bladder control) 5. any other symptoms that concern you C. Please call the office at if you have any concerns or questions about your operation or recovery. D. No smoking! Smoking drastically decreases the chance of a solid fusion. E. Do not take any anti-inflammatory medications (Indocin, Advil, Motrin, Aspirin, Naprosyn, etc.) as these may inhibit the chance of a solid fusion. Tylenol is okay to take for pain. MANAGING PAIN AFTER SPINAL SURGERY 1. Narcotic medication is intended for short-term use and will be provided for surgical pain. Surgical pain usually lasts for a period of 4-6 weeks. Narcotic medication includes Percocet, Vicodin, Darvocet, Tylenol #3 or Lortab. 2. Longer-term pain is more appropriately treated with non-narcotic medication such as Tylenol ES. 3. Muscle spasm is not appropriately treated with narcotics. Muscle relaxers such as Soma, Flexeril or Skelaxin can be used along with Tylenol ES. 4. Remember that we all live with some "aches and pains". This is not unusual or uncommon after an injury or as we get older. a. Back pain is expected and may include muscle spasms for 4 to 6 weeks after surgery. The pain should gradually improve. If the pain worsens for no apparent reason, please contact the office. b. Intermittent leg pain may also be experienced and should not be concerned about unless it worsens for no apparent reason. If so, please contact the office. 5. We will provide appropriate medication within the normal guidelines of their prescribed use. We will also be very cautious and aware of potential abuse and extended duration of patients' medication needs. a. Pain medications are for your comfort and to assist with sleep and rest so that the tissue can heal. They are not provided in order to return to normal activity and should not be used through the day. To do so or worsening pain at night can result from ongoing tissue damage and development of tolerance to the prescribed medicine. 6. Please allow 2-3 days to process refills. Prescriptions will not be mailed but must be picked up at the office. FOLLOW UP VISIT: Keep your scheduled follow-up appointment. Any questions, please call the office at . Pending Studies at Discharge: No Stand-Alone Forms: [employer], Smoking Cessation Medications and DC Order Prescriptions: New tramadol 50 mg tablet 50 mg PO Q6H PRN (Reason: pain, moderate) Qty: 30 RF: 0 oxycodone 5 mg tablet 5 mg PO Q6H PRN (Reason: pain, severe) Qty: 30 RF: 0 Continued atorvastatin 80 mg Tablet 80 mg PO HS RF: 0 ropinirole 1 mg Tablet 1 mg PO HS RF: 0 hydrocodone-acetaminophen 5-325 mg Tablet 1 - 2 tab PO QID PRN (Reason: Pain) RF: 0 clopidogrel [Plavix] 75 mg Tablet 75 mg PO QAM RF: 0 acetaminophen [Acetaminophen Extra Strength] 500 mg Tablet 1,000 mg PO Q8H PRN (Reason: Pain) RF: 0 pantoprazole 40 mg Tablet,Delayed Release (Dr/Ec) 40 mg PO HS RF: 0 folic acid 1 mg Tablet 1 mg PO TID RF: 0 metoprolol succinate 25 mg Tablet Extended Release 24 Hr 25 mg PO QPM RF: 0 saw palmetto 500 mg Capsule 500 mg PO DAILY RF: 0 lisinopril-hydrochlorothiazide 10-12.5 mg Tablet 1 tab PO QAM RF: 0 insulin lispro [Humalog KwikPen Insulin] 100 unit/mL Insulin Pen 15 - 20 unit SUBCUT WM RF: 0 Lantus Solostar U-100 Insulin 100 unit/mL (3 mL) Insulin Pen 60 unit SUBCUT HS RF: 0 Lantus Solostar U-100 Insulin 100 unit/mL (3 mL) Insulin Pen 60 unit SUBCUT QAM RF: 0 Discontinued methotrexate sodium 2.5 mg Tablet 2.5 mg PO UD RF: 0 naproxen sodium [Aleve] 220 mg Capsule 220 mg PO BID PRN (Reason: Pain) RF: 0 Discharge Orders: Discharge Order (Routine); Ordered 01/10/20 Ordered By: Tito Blevins/Other Patient Handouts: Diabetes Type 2 Managing Admission Data Admit Date/Time: 01/08/20 10:56 Attending Provider: Tito Vu Admit Provider: Tito Vu Primary Care Provider: Bere Rojas Other Providers: To Simental
== END 2020-01-10 12:11 | disposition home or self-care (01) | DRG 460 ==
LOC: ASU 06:06 → 3E 10:56